=== PATIENT | male | born 1970 | race Caucasian/White ===

== ENCOUNTER → 2021-06-20 05:57 | Outpatient (CLI) | payer SELFPAY ==
--- NOTE | 2021-06-20 08:12 | STRESSREP ---
Stress Test Report Date: 06-20-2021 Procedure: Exercise tolerance test/imaging study Indications: Chest pain; dyspnea on exertion Consent: Per the patient Procedure: The patient exercised on a Elton protocol for 8 minutes and 15 sec completing Stage II and 2 minutes and 15 seconds of Stage III achieving a peak heart rate of 164 bpm (95% predicted maximal heart rate) with a peak blood pressure 220/82 mmHg and a peak MET capacity of 9 METs. The baseline ECG demonstrated normal sinus rhythm. The peak exercise ECG demonstrated no obvious ECG changes. There was a rare PVC and an isolated ventricular couplet during recovery. The functional capacity was considered good. There was no complaint of chest discomfort during exercise or recovery. The examination was discontinued secondary to dyspnea. Impression: 1. Technically adequate (percent predicted maximal heart rate greater than 85%) exercise tolerance test 2. Peak exercise ECG with no obvious ECG changes 3. There was a rare PVC and an isolated ventricular couplet during recovery 4. Blood pressure: Resting hypertension-exaggerated response 5. Nuclear images pending Myocardial perfusion imaging study: Technique: The patient was injected with 14.3 mCi of technetium 99m Cardiolite and subsequently rest SPECT Cardiolite nuclear imaging was obtained in the horizontal long, vertical long, and short axis views. The patient exercised on a Elton protocol for 8 minutes and 15 sec completing Stage II and 2 minutes and 15 seconds of Stage III achieving a peak heart rate of 164 bpm (95% predicted maximal heart rate) with a peak blood pressure 220/82 mmHg and a peak MET capacity of 9 METs. The patient was injected with 44.6 mCi of technetium 99m Cardiolite and subsequently stress SPECT Cardiolite nuclear imaging was obtained in the horizontal long, vertical long, and short axis views. A gated Cardiolite study at peak stress was obtained. Interpretation: Rest and stress SPECT Cardiolite nuclear imaging status post realignment, normalization, and attenuation correction, demonstrates the appearance of relative uniform tracer uptake and myocardial perfusion appearing within normal limits. There is end systolic thickening and brightening. The gated Cardiolite study demonstrates myocardial thickening and inward wall motion. The reported LVEF is 66%. Impression: 1. Rest and stress SPECT Cardiolite nuclear imaging demonstrate relative uniform tracer uptake and myocardial perfusion appearing within normal limits. 2. The gated Cardiolite study reports an LVEF of 66%. This note was generated with [employer] software. It may contain incorrect words, spelling, and punctuation that were not noted in checking the note before signing.
== END ==
PROVIDERS: PCP Family Medicine; Referring Provider Family Medicine; Visit Provider Family Medicine
DX: R07.9 Chest pain, unspecified (principal); I10 Essential (primary) hypertension; E11.9 Type 2 diabetes mellitus without complications
CPT/HCPCS: 78452; 93017; A9500; A4216